=== PATIENT | male | born 1955 | race African-American/Black ===

== ENCOUNTER 2018-11-15 10:40 | Inpatient (IN) | payer OTHER ==
[2018-11-15] VITALS (80 sets, daily range): BP systolic 76–124; BP diastolic 41–80
[~2018-11-15] VITALS: Ht 175.3 cm; Wt 83.1 kg
--- NOTE | ~2018-11-15 | EEG ---
[facility] [place] [address] [place] [address] ELECTROENCEPHALOGRAM Name: CONNIE AN Room #: 241-P ADM IN M.R.#: [id number] Admission: 11/15/18 Attend Phys: Bryan Banerjee MD Discharge: Date of : 59 Report #: [id number] THIS REPORT FOR: //name// CC: Jerman Banerjee DATE OF SERVICE: 11/18/2018 This patient is being evaluated for electrocerebral silence. EEG was done by placing the electrode by standard 10-20 system of electrode placement. Both referential and sequential montages were used for recording. Initial portion of this EEG demonstrated a lot of muscle artifact and was uninterpretable. It disappeared after paralyzing agent confirming that it was muscle artifact. On the regular sensitivity of 7 microvolts, the patient's EEG does not show any definite cortical activity. On 2 microvolt artifact is present and it becomes difficult to rule out very low voltage activity from the artifact. IMPRESSION: This is a severely abnormal electroencephalogram, which does not show any cortical activity at the regular sensitivity of 7 microvolts. At 2 microvolt, it is difficult to tell because electronic artifact is present. Very low voltage activity cannot be fully excluded in this patient on the basis of this electroencephalogram alone. Either clinical correlation or evaluation by brain flow studies or repeat EEG or correlation with other electrophysiological modalities like SSER can be done as clinically indicated. Thank you very much for this referral and if you have any question, please feel free to contact me. By: 1640 [id number] Juan Marinelli MD /lora
[2018-11-15 11:16] LABS: HEMATOCRIT 54.7 % (42.0-52.0); HEMOGLOBIN 16.7 gm/dL (14.0-18.0); MCH 30.9 pg (26.0-34.0); MCHC 30.5 g/dL (28.0-37.0); MCV 101.1 fL (80.0-100.0); RBC 5.41 mil/uL (4.50-6.00); RDW 18.6 % (10.5-14.5); WBC 23.3 thou/uL (4.0-11.0)
[2018-11-15 11:19] LABS: CREATININE 2.1 mg/dL (0.7-1.3)
[2018-11-15 11:30] LABS: BE(vivo) -24.6 mmol/L (-2 to +3); HCO3 12.9 mmol/L (22.0-26.0); PO2 228.7 mmHg (80.0-100.0); sO2 98.4 % (92.0-98.0)
[2018-11-15 11:31] LABS: PCO2 92.9 mmHg (35.0-45.0); pH 6.761 (7.360-7.450)
[2018-11-15 11:38] LABS: POTASSIUM 3.2 mmol/L (3.5-5.1)
[2018-11-15 12:00] LABS: ABSOLUTE NEUTROPHILS 14.4 thou/uL (1.4-8.2); ANISOCYTOSIS 2+; METAMYELOCYTES 5 %; MYELOCYTES 1 %
[2018-11-15 12:02] LABS: PLATELET COUNT 76 thou/uL (150-400)
[2018-11-15 12:27] LABS: ALBUMIN 2.1 g/dL (3.4-5.0); DIRECT BILIRUBIN 0.2 mg/dL (<0.1-0.3); TOTAL BILIRUBIN 0.8 mg/dL (<0.1-1.0); TOTAL PROTEIN 7.2 g/dL (6.4-8.2)
[2018-11-15 12:55] LABS: BE(vivo) -15.7 mmol/L (-2 to +3); HCO3 17.9 mmol/L (22.0-26.0); PO2 82.7 mmHg (80.0-100.0)
[2018-11-15 12:56] LABS: PCO2 79.9 mmHg (35.0-45.0); pH 6.968 (7.360-7.450)
[2018-11-15 14:54] LABS: HCO3 18.5 mmol/L (22.0-26.0); PCO2 60.4 mmHg (35.0-45.0); PO2 71.7 mmHg (80.0-100.0); sO2 87.8 % (92.0-98.0)
[2018-11-15 14:57] LABS: pH 7.103 (7.360-7.450)
--- NOTE | 2018-11-15 15:21 | NUR ---
VASCULAR ACCESS CONSULTED FOR A CL FOR THIS PT WHO HIS S/P CODE WITH PE'S. DR ZEE HAS LINE MEDICALLY NECESSARY, JENISE RN IN FOR TIME OUT. LT IJ ASSESSED WITH US WIDELY PATENT. PER HOSP P&P HIS LT IJ WAS ACCESSED X1 ATTEMPT WITH US GUIDE, A 5FRTLPICC TRIMMED AT 30CM WITH A PEAKED PWAVE CAPTURED AT 23CM INTERNALLY WITH ECG. 7CM EXT AND SECURED WITH A SL. LABS OBTAINED AND A CXR ORDERED FOR CONFIRMING A - PNEUMO.
[2018-11-15 15:55] LABS: CREATININE 1.9 mg/dL (0.7-1.3)
[2018-11-15 15:56] LABS: AMP/METHAMP Negative (Negative); BARBITURATES Negative (Negative); BENZODIAZEPINES Negative (Negative); COCAINE Negative (Negative); METHADONE Negative (Negative); OPIATES Negative (Negative); PCP Negative (Negative)
[2018-11-15 15:59] LABS: CALCIUM 6.7 mg/dL (8.5-10.1)
[2018-11-15 16:01] LABS: ALBUMIN 1.6 g/dL (3.4-5.0); TOTAL BILIRUBIN 1.4 mg/dL (<0.1-1.0); TOTAL PROTEIN 5.4 g/dL (6.4-8.2)
[2018-11-15 16:20] LABS: URINE CLARITY CLEAR; URINE COLOR YELLOW; URINE GLUCOSE-RANDOM* TRACE (Negative); URINE KETONES NEGATIVE (Negative); URINE PROTEIN (DIPSTICK) 2+ (Negative)
[2018-11-15 16:21] LABS: URINE BILIRUBIN NEGATIVE (Negative); URINE BLOOD 3+ (Negative); URINE LEUKOCYTES-REFLEX NEGATIVE (Negative); URINE NITRITE-REFLEX NEGATIVE (Negative); URINE UROBILINOGEN 0.2 E.U./dl (0.2-1.0)
[2018-11-15 17:00] LABS: SQUAMOUS 0-3 Few /LPF (0-3)
[2018-11-15 17:01] LABS: CASTS None Seen /LPF (None Seen); CRYSTALS None Seen /LPF (None Seen)
[2018-11-15 17:02] LABS: URINE RBC >20 Many /HPF (0-2); URINE WBC-REFLEX 6-15 Few /HPF (0-5)
[2018-11-15 17:04] LABS: YEAST-REFLEX Present (None Seen)
[2018-11-15 17:09] LABS: BE(vivo) -12.4 mmol/L (-2 to +3); HCO3 15.4 mmol/L (22.0-26.0); PCO2 42.1 mmHg (35.0-45.0); PO2 94.9 mmHg (80.0-100.0); sO2 95.5 % (92.0-98.0)
[2018-11-15 17:10] LABS: pH 7.182 (7.360-7.450)
--- NOTE | 2018-11-15 19:52 | NUR ---
ASSUMED CARE OF PT AT 1400 THIS SHIFT. PT HAS BEEN INTUBATED AND UNRESPONSIVE SINCE ARRIVAL TO UNIT. PT WAS STARTED ON HYPOTHERMIA COOLING PROTOCOL IN ER, HOWEVER NO ORDERS WERE IN PLACE IN THE COMPUTER. PT WAS ALSO STARTED ON SEPSIS PROTOCOL. ID, CARDIOLOGY, PULMONARY, AND IR WERE CONSULTED. HOSPITAL HAD POWER OUTAGES THIS SHIFT, AND ICU PAGES WERE NOT REACHING DR ZEE, ORDERES WERE RECIEVED FROM DR HERCULES REGARDING HYPOTHERMIA PROTOCOL AND MEDICATION. PT WAS NOT ABLE TO TOLERATE HYPOTHERMIA MORE THAN 1 HOUR, PROTOCOL HAD TO BE STOPPED DUE TO HEMODYNAMIC INSTABILITY. PT HAS BEEN PLACED ON 3 PRESSORS THIS SHIFT AND PROPOFOL GTT FOR VENT MANAGEMENT. PT ALSO HAD A CT SCAN AND HEPARIN GTT WAS STARTED FOR PE TX. PT'S HAS BEEN BY TO SEE PT, EDUCATION WAS PROVIDED. PLAN OF CARE IS TO CONTINUE TO MONITOR PT CLOSELY AT THIS TIME.
[2018-11-15 20:00] LABS: BE(vivo) -14.9 mmol/L (-2 to +3); HCO3 12.3 mmol/L (22.0-26.0); PCO2 33.6 mmHg (35.0-45.0); PO2 183.6 mmHg (80.0-100.0); sO2 98.9 % (92.0-98.0)
[2018-11-15 21:49] LABS: CALCIUM 6.4 mg/dL (8.5-10.1); CREATININE 2.2 mg/dL (0.7-1.3)
[2018-11-15 21:51] LABS: POTASSIUM 2.6 mmol/L (3.5-5.1)
[2018-11-15 22:02] LABS: BE(vivo) -13.1 mmol/L (-2 to +3); HCO3 12.9 mmol/L (22.0-26.0); PCO2 31.2 mmHg (35.0-45.0); PO2 138.4 mmHg (80.0-100.0); sO2 98.3 % (92.0-98.0)
[2018-11-15 22:03] LABS: pH 7.235 (7.360-7.450)
[2018-11-16] VITALS (72 sets, daily range): BP systolic 92–133; BP diastolic 59–81
--- NOTE | 2018-11-16 01:59 | EKG ---
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
[2018-11-16 05:48] LABS: BE(vivo) -9.4 mmol/L (-2 to +3); HCO3 14.9 mmol/L (22.0-26.0); PCO2 29.1 mmHg (35.0-45.0); PO2 166.5 mmHg (80.0-100.0)
[2018-11-16 05:49] LABS: pH 7.328 (7.360-7.450)
[2018-11-16 06:25] LABS: HEMATOCRIT 47.9 % (42.0-52.0); MCH 29.8 pg (26.0-34.0); MCHC 31.4 g/dL (28.0-37.0); PLATELET COUNT 78 thou/uL (150-400); RBC 5.05 mil/uL (4.50-6.00); RDW 17.6 % (10.5-14.5)
[2018-11-16 06:27] LABS: MCV 94.8 fL (80.0-100.0); WBC 39.5 thou/uL (4.0-11.0)
[2018-11-16 06:38] LABS: CREATININE 2.6 mg/dL (0.7-1.3); POTASSIUM 3.4 mmol/L (3.5-5.1)
[2018-11-16 06:53] LABS: CALCIUM 7.1 mg/dL (8.5-10.1)
--- NOTE | 2018-11-16 07:49 | NUR ---
END OF SHIFT SUMMARY: Slow progress toward goals. Pt remains non-responsive except to open eyes, and has jerking/twitching of facial muscles and upper extremities to noxious stimuli. Positive corneal and gag reflexes. MTN notified per protocol. Pt initially on propofol 30 mcg/kg/min and Fentanyl 30 mcg/hour for sedation. Able to titrate fentanyl off and Propofol titrated down to 24 mcg/kg/min. Pt has remained sinus rhythm without ectopy this shift. Blood pressure intially required Levophed at 30 mcg/min, Vasopressin 0.04 units/min, and Epinephrine at 10 mcg/min to maintain MAP >60. Epinephrine changed to Neosynephrine per order Dr. Rudolph and titrated off by 0400. Levophed now down to 28 mcg/min and Vasopressin remains at max dose. Heparin gtt titrated per protocol. Critical labs called to physicians as noted in [facility]. Able to titrate FiO2 down to 50% from 60%, sat remains 100%. ABGs have shown gradual improvement over this shift. Urine output remains very marginal (250 cc for this shift) despite Lasix given at 2300.
--- NOTE | 2018-11-16 08:22 | HC ---
[facility] [place] [address] [place] [address] CONSULTATION Name: CONNIE AN Room #: [facility]- ADM IN M.R.#: [id number] Admission: 11/15/18 Attend Phys: Bryan Banerjee MD Discharge: Date of : 59 Report #: [id number] THIS REPORT FOR: //name// CC: Jerman Banerjee DATE OF SERVICE: 11/15/2018 INDICATION: Out of hospital arrest. HISTORY OF PRESENT ILLNESS: This is a 63-year-old gentleman who presents with an out of hospital arrest, witnessed by his . The patient is presently intubated, the history is obtained from his records. He had been feeling sick for the past few days, with decreased p.o. intake. He developed shortness of breath and became unresponsive. His called 911. He received CPR and several rounds of epinephrine for PEA/asystole. In the ER, he was noted to have a pulse and was intubated. He was hypotensive requiring pressor support. A CT scan revealed a large embolism in the pulmonary artery with extension into the right pulmonary artery. There is also evidence for pneumonia on the right side. PAST MEDICAL HISTORY: Apparently with Crohn's. ALLERGIES: Please see the MAR. MEDICATIONS: No known home medications. SOCIAL HISTORY: No apparent history for tobacco use. FAMILY HISTORY: Unobtainable. REVIEW OF SYSTEMS: Unobtainable. PHYSICAL EXAMINATION: VITAL SIGNS: Blood pressure is 104/70, heart rate is 85 beats per minute. GENERAL APPEARANCE: This is a well-developed, well-nourished male, intubated, unresponsive. HEENT: Normocephalic, atraumatic. ET tube in place. NECK: No JVD. LUNGS: Diminished breath sounds on the right side. CARDIAC: S1, S2 positive, regular rate and rhythm. ABDOMEN: Soft, nontender. EXTREMITIES: No cyanosis, no edema. ECG reveals sinus rhythm, right bundle branch block, Q-waves in leads 3 and aVF. LABORATORY VALUES: Initial creatinine is 2.1. Troponin 0.08. White count is [facility] [address] [place] [address] CONSULTATION Name: CONNIE AN Room #: 241-P ADM IN M.R.#: [id number] Admission: 11/15/18 Attend Phys: Bryan Banerjee MD Discharge: Date of : 59 Report #: [id number] 23.3, hemoglobin 16.7. Initial lactate was 12.82. ASSESSMENT AND PLAN: 1. Out of hospital cardiac arrest, attributed to hypoxia from pulmonary embolism. No evidence for arrhythmia by EMS. Presently on heparin. Continue full ICU supportive care at this time. 2. Hypotension, rule out septic shock. The patient had been feeling ill for the past several days. Antibiotics and panculture, as per ID. A CT scan suggestive for right lung pneumonia. 3. Minimal troponin elevation, 0.08, probably due to oxygen mismatch from pulmonary emboli. We will proceed with an echocardiogram. 4. Encephalopathy, presently unresponsive with no purposeful movements. We will observe for any change in his status. May have had anoxic encephalopathy due to his arrest. <ELECTRONICALLY SIGNED> By: Rj Hodge MD 11/16/18 0822 [id number] Rj Hodge MD /nt
--- NOTE | 2018-11-16 10:35 | HC ---
[facility] [place] [address] [place] [address] CONSULTATION Name: CONNIE AN Room #: 241-P ADM IN M.R.#: [id number] Admission: 11/15/18 Attend Phys: Bryan Banerjee MD Discharge: Date of : 59 Report #: [id number] THIS REPORT FOR: //name// CC: Jerman Banerjee DATE OF SERVICE: 11/15/2018 Infectious Diseases Consultation REASON FOR CONSULTATION: Evaluation of septic shock. HISTORY OF PRESENT ILLNESS: The patient is a 63-year-old black male who presented to the emergency room this morning after being found down at home by his . Unclear exactly how long he was down. First report was that he collapsed on the floor with in attendance, but I am not sure if that is correct. She found no pulse and began CPR, called the paramedics who then initiated ACLS protocol, intubated in the field, found to be in PEA. Once presenting to the emergency room, he was hypotensive and given IV fluids and had initial response to this. Further imaging by CT scan showed left pulmonary embolus, as well as extensive right pneumonia. The patient has underlying history of Crohn's disease and has had intermittent doses of prednisone. Nothing in the recent past. Prior to this, the patient had been with an upper respiratory tract infection symptoms. He had some sinus congestion and headaches. He has had no travel. No other known exposures. No previous history of hypercoagulable state. Following stabilization in the emergency room, he was transported to ICU where he is on IV fluids, bicarbonate drip along with three vasopressors to maintain adequate blood pressure. He has remained hypothermic. There was a trial of the hypothermic protocol, but this was taken off due to his instability. He has remained encephalopathic. There has been evidence of muscle twitching, mostly in facial and upper extremities. He is now on FIO2 of 50%. He has had minimal amount of tracheal secretions. OG tube to suction. No bloody fluid has been identified. He has had no diarrhea. He has indwelling Lewis catheter now with poor urine output. REVIEW OF SYSTEMS: A 10-point review of systems is negative other than what is described above. ALLERGIES: None known. MEDICATIONS: As noted on his MAR, which were reviewed. He was given azithromycin, Levaquin, Zosyn thus far. He is now anticoagulated. PAST MEDICAL HISTORY: Crohn's disease. [facility] [address] [place] [address] CONSULTATION Name: CONNIE AN Room #: 241-P [facility] IN M.R.#: [id number] Admission: 11/15/18 Attend Phys: Bryan Banerjee MD Discharge: Date of : 59 Report #: [id number] FAMILY HISTORY: Noncontributory. SOCIAL HISTORY: Lives with his . We do not know his alcohol or tobacco use history. PHYSICAL EXAMINATION: GENERAL: He was on the ventilator. VITAL SIGNS: Temperature 95.7, pulse is 72, blood pressure 88/67. He is on 50% FiO2, orally intubated. The patient was cold in distal extremities. No rashes. HEENT: Upward gaze with conjunctivitis evident. Mouth without lesion. NECK: Supple. No palpable adenopathy. LUNGS: Coarse breath sounds in the right. CARDIOVASCULAR: Heart was regular without murmur, gallop or rub. ABDOMEN: Soft, nontender, no hepatosplenomegaly or mass appreciated. GENITOURINARY: External genitalia unremarkable with no masses or rash and an indwelling Lewis catheter. RECTAL: Not performed. NEUROLOGIC: He did withdraw to pain. He did have frequent myoclonic jerks involving his eyes and mouth. LABORATORY DATA: Sodium 140, potassium 2.6, bicarbonate 19, creatinine 2.2, AST 131, bilirubin 1.41, alkaline phosphatase 134, ALT 34, albumin of 1.6. Troponin 0.08. INR 2, fibrinogen 50. Drug screen negative. Hemoglobin 16.7, WBC 21945, platelet count 30255, 56% neutrophils, 6% bands, 5% metamyelocyte, 1 myelocyte. Procalcitonin 1.1. Urinalysis: Few WBCs, many RBCs, moderate bacteria, yeast present. ABG at 19:55 on 50% FiO2, he had pO2 of 138, pCO2 of 31, pH 7.235, lactate 5.6. Blood, urine and sputum cultures are pending. Urine antigen is pending. IMAGING DATA: Chest x-ray as noted above with a large 3.2 cm embolism in the left main pulmonary artery extending into the left lower lobe pulmonary arteries. Extensive pneumonia to the right lung. Coronary disease evident. CT of the head: Ethmoid and sphenoid sinusitis. IMPRESSION: 1. A 53-year-old with out of hospital cardiac arrest due to pulmonary embolus. Likely aspiration pneumonia. Still possible he could have had pneumonia predating this, but I suspect this is more likely secondary issue from his code and cardiopulmonary resuscitation. 2. Anoxic brain injury. 3. Acute kidney injury. 4. Underlying Crohn's disease. RECOMMENDATIONS: We will continue full ICU support. I have discussed with nursing staff regarding treatment approach. We will continue IV antibiotic [facility] [address] [place] [address] CONSULTATION Name: CONNIE AN Room #: 241-P ADM IN Markos.#: [id number] Admission: 11/15/18 Attend Phys: Bryan Banerjee MD Discharge: Date of : 59 Report #: [id number] therapy awaiting culture results. Continue vasopressors and fluids per sepsis protocol. Follow chest x-ray. Adjust his antibiotics for his acute renal injury. [place] in this situation is poor given his multisystem failure and apparent anoxic brain injury. At his age; however, we will need to continue current level of support to see if there will be signs of improvement within the next several days. <ELECTRONICALLY SIGNED> By: Carlos Casanova MD 11/16/18 1035 [id number] Carlos Casanova MD /nt
[2018-11-16 11:12] LABS: ABSOLUTE NEUTROPHILS 37.9 thou/uL (1.4-8.2); ANISOCYTOSIS 1+
[2018-11-16 11:30] LABS: HCO3 15.4 mmol/L (22.0-26.0); PO2 204.3 mmHg (80.0-100.0); sO2 99.3 % (92.0-98.0)
[2018-11-16 11:31] LABS: pH 7.329 (7.360-7.450)
[2018-11-16 12:35] LABS: CALCIUM 6.1 mg/dL (8.5-10.1); CREATININE 2.7 mg/dL (0.7-1.3); POTASSIUM 3.8 mmol/L (3.5-5.1)
--- NOTE | 2018-11-16 15:24 | HC ---
[facility] [place] [address] [place] [address] CONSULTATION Name: CONNIE AN Room #: 241-P ADM IN M.R.#: [id number] Admission: 11/15/18 Attend Phys: Bryan Banerjee MD Discharge: Date of : 59 Report #: [id number] THIS REPORT FOR: //name// CC: Jerman Banerjee DATE OF SERVICE: 11/15/2018 REFERRING PHYSICIAN: Dr. Banerjee. REASON FOR REFERRAL: Respiratory arrest. HISTORY OF PRESENT ILLNESS: The patient is a 63-year-old male who presents to the Emergency Room following a cardiac arrest. A pulmonary consultation was requested. The patient was apparently sitting at home and the patient suddenly became dyspneic and then went unresponsive. When EMS arrived, the patient was found to be pulseless. Prior to this, the has given CPR to the patient for about 2 minutes. The patient was intubated in the field. Subsequently, the patient was found to be in asystole, PEA. The patient was then transferred to the Emergency Room. Spontaneous return of pulse was noted when the patient arrived in the Emergency Room. Laryngeal intubation tube was then substituted for an endotracheal tube. The patient was hypotensive. He was given IV fluids, broad spectrum antibiotics. Hypothermia protocol has also been initiated. At this time, the patient remains unresponsive. CT chest, chest x-ray shows right upper lobe, right lower lobe infiltrates. ET tube is approximately 3 cm above the markos. PAST MEDICAL HISTORY: Notable for Crohn's disease, otherwise incomplete. ALLERGIES: Unknown. HOME MEDICATIONS: Unknown. FAMILY HISTORY: Unknown. SOCIAL HISTORY: The patient is a lifetime nonsmoker. No alcohol use. REVIEW OF SYSTEMS: As mentioned above, otherwise unable to obtain as the patient is intubated. PHYSICAL EXAMINATION: GENERAL: He is unresponsive, he does have twitching motions involving both of [facility] [address] [place] [address] CONSULTATION Name: CONNIE AN Room #: 241-P [facility] IN Jose.#: [id number] Admission: 11/15/18 Attend Phys: Bryan Banerjee MD Discharge: Date of : 59 Report #: [id number] his shoulders. VITAL SIGNS: Pulse is 80, respiratory rate is 20, blood pressure is 110/64 mmHg. Following fluid resuscitation, saturation 100%. HEENT: Normocephalic, atraumatic. NECK: Supple, without lymphadenopathy or thyromegaly. He is orally intubated. CHEST: Breath sounds are coarse in the right lung field. No wheezes. CARDIOVASCULAR: No obvious murmurs or gallop. Pulses are 2+/4+ bilaterally. ABDOMEN: Soft, nontender, no organomegaly or masses felt. GENITOURINARY: Deferred. RECTAL: Deferred. EXTREMITIES: There is no edema, cyanosis or clubbing. NEUROLOGIC: The patient is unresponsive. Some decorticate posturing. He is unresponsive to deep sternal rub. LABORATORY DATA: Chest x-ray and chest CT as mentioned above. CT head was unremarkable. CT chest angiogram also revealed pulmonary embolus involving the left main pulmonary artery. Pneumonia in the right side. Electrolytes: Sodium 142, potassium 3.2, chloride 100, CO2 is 18, BUN is 18, creatinine is 2.1. WBC 23,000, hemoglobin 16.7, platelets 76,000. INR 2.0, PTT 107. Arterial blood gas on admission revealed pH 7.67, pCO2 is 92, pO2 is 228 on FiO2 100%. Albumin 2.1. IMPRESSION: 1. Out of hospital cardiac arrest in this 63-year-old male. His chest x-ray and chest CT angiogram shows right upper lobe and right lower lobe infiltrates. There is a moderate sized left main pulmonary artery embolus. It is likely that patient likely had pulmonary embolus resulting in loss of consciousness resulting in cardiac arrest and likely have aspirated. 2. Acute pulmonary embolus. Unclear if it is provoked or unprovoked. This will need to be addressed. 2. Right upper lobe, right lower lobe infiltrate, likely aspiration pneumonia. 3. Cardiac arrest as mentioned above, agree with hypothermia protocol. 4. Presumed acute kidney injury in the setting of septic shock, will need to monitor urine output closely along with recent IV contrast administration. 5. Encephalopathy, probable acute hypoxic brain injury, along with toxic and metabolic. 6. History of Crohn's disease. 7. Disseminated intravascular coagulation due to severe sepsis. 8. Severe protein-calorie malnutrition. RECOMMENDATION: 1. We will continue mechanical ventilation, optimize PEEP as allowed along with weaning FiO2 90-92%. Broad-spectrum antibiotics recommended in particular to cover for presumed aspiration pneumonia. 2. Agree with sepsis protocol. Infectious Disease has been consulted. [address] [address] CONSULTATION Name: CONNIE AN Room #: 241-P ADM IN M.R.#: [id number] Admission: 11/15/18 Attend Phys: Bryan Banerjee MD Discharge: Date of : 59 Report #: [id number] 3. We will need to monitor urine output closely given septic shock, recent IV contrast administration along with a creatinine on admission of 2.1. 4. He will need anticoagulation as tolerated. 5. Agree with hypothermia protocol. 6. Baseline ultrasound, echocardiogram will be ordered. 7. Overall, the patient is very critically ill. Overall, prognosis is very guarded at this time. Thank you for this consultation. Critical care one hour. <ELECTRONICALLY SIGNED> By: Clarence Rudolph MD 11/16/18 1524 1335 [id number] Clarence Rudolph MD /nt
--- NOTE | 2018-11-16 16:45 | NUR ---
ASSUMED CARE OF PT AT 0700 THIS SHIFT. PT HAS BEEN UNRESPONSIVE, NOT FOLLOWING ANY COMMANDS. PT DOES NOT APPEAR TO HAVE GAG REFLEX, HOWEVER, HARD TO TELL DUE TO PT'S TEETH BEING CLAMPED DOWN VERY TIGHT AROUND ET TUBE AND BITE BLOCK. PT DOES HAVE JERKING MUSCLE SPASMS WHEN SEDATION IS LIGHTENED WELL BEING TACHYPNIC AND OVERBREATHING THE VENT. PT HAS BEEN TITRATED DOWN TO ONE PRESSOR, CURRENTLY STILL TITRATING DOWN - SEE MED TITRATION. PT IS MAKING ADEQUATE URINE, HEPARIN GTT IS THERAPEUTIC. ASSESSMENTS ARE DOCUMENTED. PT HAS HAD VISITORS THIS SHIFT, EDUCATION WAS PROVIDED. PLAN OF CARE IS TO CONTINUE TO MONITOR PT CLOSELY AT THIS TIME.
[2018-11-16 17:09] LABS: BE(vivo) -7.3 mmol/L (-2 to +3); HCO3 16.4 mmol/L (22.0-26.0); PCO2 28.8 mmHg (35.0-45.0); pH 7.372 (7.360-7.450); sO2 97.7 % (92.0-98.0)
[2018-11-16 17:31] LABS: CALCIUM 6.1 mg/dL (8.5-10.1); CREATININE 2.9 mg/dL (0.7-1.3); POTASSIUM 3.4 mmol/L (3.5-5.1)
[2018-11-17] VITALS (94 sets, daily range): BP systolic 98–148; BP diastolic 62–103
[2018-11-17 05:00] LABS: BE(vivo) -6.5 mmol/L (-2 to +3); HCO3 17.2 mmol/L (22.0-26.0); PCO2 29.3 mmHg (35.0-45.0); pH 7.387 (7.360-7.450); sO2 87.1 % (92.0-98.0)
[2018-11-17 05:01] LABS: PO2 52.1 mmHg (80.0-100.0)
[2018-11-17 05:34] LABS: HEMATOCRIT 39.8 % (42.0-52.0); MCH 29.8 pg (26.0-34.0); MCHC 32.3 g/dL (28.0-37.0); MCV 92.3 fL (80.0-100.0); PLATELET COUNT 64 thou/uL (150-400); RBC 4.32 mil/uL (4.50-6.00); RDW 17.2 % (10.5-14.5)
[2018-11-17 05:45] LABS: HEMOGLOBIN 12.9 gm/dL (14.0-18.0); WBC 24.4 thou/uL (4.0-11.0)
[2018-11-17 05:54] LABS: ALBUMIN 1.7 g/dL (3.4-5.0); CREATININE 3.3 mg/dL (0.7-1.3); MAGNESIUM 1.8 mg/dL (1.8-2.4); POTASSIUM 3.3 mmol/L (3.5-5.1); TOTAL BILIRUBIN 0.7 mg/dL (<0.1-1.0); TOTAL PROTEIN 5.7 g/dL (6.4-8.2)
--- NOTE | 2018-11-17 06:36 | NUR ---
END OF SHIFT SUMMARY: Pt has remained stable this shift. Monitor remains sinus rhythm, sinus tachycardia, rates 70-106. MAP remains > 70 with Quad Strength Levophed at 6 mcg/min. Pt resting calmly on vent, no jerking or muscle twitching, with Propofol at 35 mcg/kg/min. Suctioning small amounts of thick greyish yellow sputum. Minimal dark green output from OG. Pt had two loose, dark green mucous stools this shift. Urine output has improved, hourly output approximately 125 per hour. Pt remains on heparin gtt for pulmonary emboli.
[2018-11-17 06:47] LABS: ABSOLUTE NEUTROPHILS 22.4 thou/uL (1.4-8.2)
[2018-11-17 06:48] LABS: BURR CELLS 1+; PLATELET ESTIMATE DECREASED
[2018-11-17] MEDS ORDERED: SULFASALAZINE500 M5 PO (08:28)
--- NOTE | 2018-11-17 09:52 | NUR ---
Admit to ICU with sepsis, post code. Currently unresponsive, intubated and on propofol. Will follow plan of care, and any decisions to start nutrition support.
--- NOTE | 2018-11-17 13:36 | EKG ---
[address] [address] ELECTROCARDIOGRAM REPORT Name: CONNIE AN Room #: 241-P ADM IN M.R.#: [id number] Admission: 11/15/18 Attend Phys: Bryan Banerjee MD Discharge: Date of : 59 Report #: [id number] THIS REPORT FOR: //name// [facility] Test Date: 2018-11-17 Test Time: 07:07:10 Pat Name: CONNIE AN Department: Room: 241 P Gender: M Office System Analyst: DIPTI : 1955 Requested By: Rj Hodge Order Number: [id number] MD: Addison Camacho Measurements Intervals [place] Rate: 71 P: 14 [place]: 155 QRS: -24 QRSD: 108 T: -38 QT: 488 QTc: 531 Interpretive Statements Sinus rhythm Borderline left axis deviation RSR' in V1 or V2, right VCD or RVH Borderline T abnormalities, inferior leads Compared to ECG 11/15/2018 10:42:59 Electronically Signed On 11-17-2018 13:36:36 KOSHER DIETARY SERVICE MANAGER by Addison Camacho [email or web address] <ELECTRONICALLY SIGNED> By: Addison Camacho MD 11/17/18 1336 [id number] 0707 Addison Camacho MD /EPI
[2018-11-17 14:00] LABS: BE(vivo) -7.2 mmol/L (-2 to +3); HCO3 15.7 mmol/L (22.0-26.0); PCO2 25.6 mmHg (35.0-45.0); PO2 152.1 mmHg (80.0-100.0); pH 7.405 (7.360-7.450)
--- NOTE | 2018-11-17 15:07 | NUR ---
CM ASSESSMENT: CASE OPENED FOR DC PLANNING. CLINICAL INFO REVIEWED. ARREST AT HOME WITH SPOUSE CALLING EMS AND STARTING CPR. INTUBATED. MET WITH SPOUSE. PT AND SPOUSE LIVE INN HOUSE. PT IS MEDICALLY DISABLED, BUT INDEPENDENT WITH ADLS, NO DME OR PREVIOUS HH. INFORMED SPOUSE [employer] INSURANCE CARD PROVIDED SHOWS POLICY TERMED 09/14/18. SPOUSE INDICATES SHE BELIEVES CURRENT CARD AT HOME AND WENT TO LOOK. INSTRUCTED NEWS LIBRARY DIRECTOR TO COPY NEW CARD IF SPOUSE ABLE TO LOCATE.
--- NOTE | 2018-11-17 16:37 | 2DMMODE ---
[facility] [address] [place] [address] 2 D/M-MODE ECHOCARDIOGRAM Name: CONNIE AN Room #: 241-P ADM IN M.R.#: [id number] Admission: 11/15/18 Attend Phys: Bryan Banerjee MD Discharge: Date of : 59 Date of Service: 11/17/18 1636 Report #: [id number] THIS REPORT FOR: //name// APPROVED REPORT Study performed: 11/17/2018 13:26:21 EXAM: Comprehensive 2D, Doppler, and color-flow Echocardiogram Patient Location: ICU Room #: 241 Status: routine BSA: 2.12 HR: 88 bpm BP: 122/90 mmHg Rhythm: NSR Other Information Study Quality: Good Indications Pulmonary Embolism Cardiac Arrest 2D Dimensions RVDd: 40.77 mm IVSd: 10.67 (7-11mm) LVOT Diam: 26.26 (18-24mm) LVDd: 52.93 mm PWd: 10.38 (7-11mm) Ascending Ao: 34.53 (22-36mm) LVDs: 42.19 (25-40mm) Aortic Root: 40.59 mm IVC: 25.00 mm Volumes Left Atrial Volume (Systole) Single Plane 4CH: 61.42 mL Single Plane 2CH: 67.53 mL LA ESV Index: 36.00 mL/m2 Aortic Valve AoV Peak Isidro.: 0.89 m/s AO Peak Gr.: 3.15 mmHg LVOT Max P.20 mmHg LVOT Max V: 0.74 m/s OBIE Vmax: 4.53 cm2 Mitral Valve E/A Ratio: 0.5 MV Decel. Time: 203.39 ms [facility] [address] [place] [address] 2 D/M-MODE ECHOCARDIOGRAM Name: CONNIE AN Room #: 241-P [facility] IN [facility].#: [id number] Admission: 11/15/18 Attend Phys: Bryan Banerjee MD Discharge: Date of : 59 Date of Service: 11/17/18 1636 Report #: [id number] E Max Isidro.: 0.50 m/s MV A Isidro.: 0.93 m/s MV PHT: 58.98 ms IVRT: 147.64 ms Pulmonary Valve PV Peak Isidro.: 0.56 m/s PV Peak Gr.: 1.26 mmHg Pulmonary Vein P Vein S: 0.59 m/s P Vein A: 0.29 m/s P Vein D: 0.28 m/s P Vein A Dur.: 133.8 msec P Vein S/D Ratio: 2.11 Left Ventricle The left ventricle is normal size. There is global hypokinesis of the left ventricle. There is normal left ventricular wall thickness. Left ventricular systolic function is moderately decreased. LVEF 40%. Grade I - abnormal relaxation pattern. Right Ventricle The right ventricle is normal size. The right ventricular systolic function is normal. Atria Left atrium is dilated. Right atrium is at the upper limits of normal. Aortic Valve Aortic valve is mildly calcified, probably bicuspid. Trace aortic regurgitation. There is no aortic valvular stenosis. Mitral Valve The mitral valve is normal in structure. Trace to mild mitral regurgitation. No evidence of mitral valve stenosis. Tricuspid Valve The tricuspid valve is normal in structure. There is no tricuspid valve regurgitation noted. Pulmonic Valve The pulmonary valve is normal in structure. Trace pulmonic regurgitation. Great Vessels The aortic root is normal in size. IVC is dilated. [facility] [address] [place] [address] 2 D/M-MODE ECHOCARDIOGRAM Name: CONNIE AN Room #: 241-P [facility] IN M.R.#: [id number] Admission: 11/15/18 Attend Phys: Bryan Banerjee MD Discharge: Date of : 59 Date of Service: 11/17/18 1636 Report #: [id number] Pericardium There is no pericardial effusion. <Conclusion> Left ventricular systolic function is moderately decreased. There is global hypokinesis of the left ventricle. LVEF 40%. Mild diastolic dysfunction Aortic valve is mildly calcified, probably bicuspid. Trace aortic regurgitation, no stenosis. The mitral valve is normal in structure. Trace to mild mitral regurgitation. Pulmonary artery pressure could not be reliably ascertained There is no pericardial effusion. <ELECTRONICALLY SIGNED> By: Johnnie Vasquez MD, FACC 11/17/18 [phone] [id number] Johnnie Vasquez MD, FACC /INF
[2018-11-18] VITALS (25 sets, daily range): BP systolic 96–136; BP diastolic 60–99
--- NOTE | 2018-11-18 03:21 | NUR ---
ASSESSMENT CHARTED. SPOKE TO ROSE BLACKMAN ABOUT BOTH BICARB AND NORMAL SALINE DRIPS CONCERNED WITH FLUID OVERLOAD. SHE DROPPED THE RATE OF NORMAL SALINE TO 75. MAINTAINED CVP MONITORING SINCE RENAL HAS NOT SEEN HIM YET. INCREASED TUBE FEED TO 40ML/HR WHICH IS GOAL. TURNED AND BATHED. PLAN OF CARE IS TO BE SEEN BY NEPHROLOGY, ADVANCE CARE POSSIBLE, KEEP FAMILY AWARE OF SITUATION.
[2018-11-18 04:26] LABS: HEMOGLOBIN 12.2 gm/dL (14.0-18.0); MCH 29.3 pg (26.0-34.0); MCHC 31.4 g/dL (28.0-37.0); MCV 93.6 fL (80.0-100.0); RBC 4.17 mil/uL (4.50-6.00); RDW 17.4 % (10.5-14.5); WBC 24.4 thou/uL (4.0-11.0)
[2018-11-18 04:33] LABS: CALCIUM 6.1 mg/dL (8.5-10.1); CREATININE 3.6 mg/dL (0.7-1.3)
[2018-11-18 04:39] LABS: POTASSIUM 3.7 mmol/L (3.5-5.1)
[2018-11-18 05:20] LABS: BE(vivo) -5.8 mmol/L (-2 to +3); HCO3 17.6 mmol/L (22.0-26.0); PCO2 28.8 mmHg (35.0-45.0); PO2 171.6 mmHg (80.0-100.0); pH 7.404 (7.360-7.450); sO2 99.2 % (92.0-98.0)
--- NOTE | 2018-11-18 10:49 | NUR ---
Checked with spouse this am for current insurance card. Spouse provided current member ID and forwarded to precert at [facility]. requested spouse bring card so can copy and forward to precert. Pt remains on vent, off sedation and not responsive. EEG and neuro consult planned.
--- NOTE | 2018-11-18 15:42 | NUR ---
PT IS ALERT AND ORIENTED X3. SOME CONFUSION AT TIMES. SOME PAIN IN RIGHT HIP RATES A 8-9. MEDICATIONS GIVEN FOR PAIN RELIEF. NORMAL SINUS RHYTHM ON THE MECHANICAL SPECIALIST. LUNGS ARE COARSE ON 3 LITERS NASAL CANULA. ON LIQUID DIET. SOME NAUAEA NOTED. OROZCO WITH GOOD OUTPUT. RECEIVED 2UNITS OF BLOOD TODAY FOR HEMOGLOBIN. WILL RECHECK TO SEE AFTER BLOOD WHAT IT IS NOW POST TRANSFUSION. WILL CONTINUE TO ASSESS AND MONITOR PER NURSING
--- NOTE | 2018-11-18 15:50 | NUR ---
PT IS EYES ARE OPEN AND SLUGISH WITH PUPIL REACTION. DOES NOT FOLLOW COMMANDS AT THIS TIME. NEURO CONSULT DONE TODAY . EEG AND TAKEN FOR CT SCAN PER DIAGNOSITC TESTING. NORMAL SINUS RHYTHM ON THE GUIDE SETTER. LUNGS ARE CLEAR TO DIMINISHED. TOLERATING TUBE FEEDING AT GOAL OF 40CC NO RESIDUAL NOTED. SCDS ON BILATERAL. REMAINS ON HEPARIN DRIP FOR PE AT THIS TIME. AT BEDSIDE FOR SUPPORT TODAY. WILL CONTINUE TO ASSESS AND MONITOR PER NURSING
[2018-11-19] VITALS (24 sets, daily range): BP systolic 79–136; BP diastolic 46–80
--- NOTE | 2018-11-19 03:39 | NUR ---
PT HAD AN EPISODE OF WHAT APPEARED TO BE SEIZURE ACTIVITY. PT HAD UPWARD GAZE DEVIATION, HE WAS BITTING HEAVILY ON HIS ETT AND WAS COMPLETELY ASYNCHRONOUS WITH THE VENT. SIMILAR EPISODE WAS WITNESSED EARLIER WHILE PT'S IN THE ROOM. AT THAT TIME ATIVAN WAS GIVEN WITH IMPROVEMENT. HOWEVER, PT DID NOT RESPOND TO ATIVAN ON THIS OCCASION. PT CONTINUE TO BITE DOWN AND WAS NOT GETTING HIS VOLUME ON THE VENT. RTPEG, AT BEDSIDE SUCTIONED MODERATE AMOUNT OF WINTERS/BLOOD TINGED SECRETIONS. PT STARTED ON PROPOFOL AT THIS TIME. WILL CONTINUE TO MONITOR.
[2018-11-19 05:27] LABS: ALBUMIN 1.7 g/dL (3.4-5.0); CALCIUM 6.1 mg/dL (8.5-10.1); CREATININE 3.5 mg/dL (0.7-1.3); PHOSPHORUS 2.8 mg/dL (2.5-4.9)
[2018-11-19 05:52] LABS: HEMATOCRIT 36.8 % (42.0-52.0); MCH 30.2 pg (26.0-34.0); MCHC 32.6 g/dL (28.0-37.0); MCV 92.7 fL (80.0-100.0); RBC 3.97 mil/uL (4.50-6.00); WBC 15.7 thou/uL (4.0-11.0)
[2018-11-19 11:12] LABS: BE(vivo) -5.1 mmol/L (-2 to +3); HCO3 17.5 mmol/L (22.0-26.0); PCO2 26.1 mmHg (35.0-45.0); PO2 140.8 mmHg (80.0-100.0); pH 7.445 (7.360-7.450); sO2 98.9 % (92.0-98.0)
--- NOTE | 2018-11-19 20:37 | NUR ---
ASSESSMENTS AND VITAL SIGNS DOCUMENTED. PHYSICIANS AWARE OF SOFT BLOOD PRESSURE SUCH PULMONARY, CARDIAC, AND NEUROLOGIST PHYSICIANS. PRN LEVOPHED ON STANDBY. PROPOFOL GTT DISCONTINUED SECONDARY TO HYPOTENSION. BLOOD PRESSURES BECAME MORE ELEVATED AFTERWARDS STOPPING THE PROPOFOL. LEVPHED NEVER STARTED. HIS NEUROLOGIC STATUS VARIES. HE WAS HYPOTHERMIC AT ONE POINT, BLANKET WARMER INITIATED OK'D BY PHYSICIANS. HE THEN BECAME NORMOTHERMIC. HIS VITAL SIGNS VARIED. HIS NEURO STATUS VARIED, WHICH WAS INFORMED TO NEUROLOGIST, DURING HIS ASSESSMENT. HE APPEARS TO BE TOLERATING TUBE FEEDING. HEPARIN GTT REMAINS DOCUMENTED. HE BIT HIS TONGUE AND IT IS DIFFICULT TO KEEP HIS TONGUE OUT FROM BETWEEN HIS TEETH. UPDATED THROUGHOUT THE DAY AND WAS ABLE TO TALK TO MULTIPLE PHYSICIANS TODAY. DR. ANGULO AWARE OF PATIENTS BLOOD PRESSURES. PLAN OF CARE IS TO CONTINUE TO MONITOR PATIENT STATUS, MONITOR VITAL SIGNS, TURN Q2 HOURS, MONITOR TUBE FEEDING AND CONTINUE WITH MEDICAL TREATMENTS ORDERED BY PHYSICIANS. POTASSIUM REPLACED PER RENAL ORDER. NURSE TALKED WITH DR. PALOMARES WHO EXPRESSED TO DISCONTINUE PROTOCOL AND NO NEED TO RECHECK HIS POTASSIUM TODAY THERE ARE LAB ORDERS FOR THE MORNING. REPORT GIVEN TO TRANSFER CAR OPERATOR DRIER RN FOR CONTINUATION OF CARE.
[2018-11-20] VITALS (24 sets, daily range): BP systolic 99–155; BP diastolic 47–85
[2018-11-20 06:11] LABS: HEMATOCRIT 36.2 % (42.0-52.0); HEMOGLOBIN 11.4 gm/dL (14.0-18.0); MCH 29.4 pg (26.0-34.0); MCHC 31.6 g/dL (28.0-37.0); RBC 3.89 mil/uL (4.50-6.00); RDW 17.5 % (10.5-14.5); WBC 11.6 thou/uL (4.0-11.0)
[2018-11-20 06:33] LABS: ALBUMIN 1.7 g/dL (3.4-5.0); CALCIUM 6.3 mg/dL (8.5-10.1); CREATININE 3.7 mg/dL (0.7-1.3); MAGNESIUM 1.6 mg/dL (1.8-2.4); TOTAL BILIRUBIN 0.4 mg/dL (<0.1-1.0); TOTAL PROTEIN 5.5 g/dL (6.4-8.2)
--- NOTE | 2018-11-20 07:28 | NUR ---
PT REMAINS ON VENT AT FIO2 40% PT SR/SB ON MONITOR. PT CONTINUES WITH TUBE FEEDS AT GOAL 40CC/HR WITHOUT RESIDUAL. PT CONTINUES ON HEPARIN GTT WITH TITRATION PER PROTOCOL. NOTIFIED DAY RN OF ELECTROLYTE RESULTS AND THEY WILL DEFER TO RENAL FOR REPLACEMENT.
[2018-11-20 12:40] LABS: BE(vivo) -6.5 mmol/L (-2 to +3); HCO3 17.3 mmol/L (22.0-26.0); PO2 122.2 mmHg (80.0-100.0); pH 7.378 (7.360-7.450); sO2 98.4 % (92.0-98.0)
--- NOTE | 2018-11-20 14:48 | NUR ---
PT NOTED TO HAVE INCREASED WORK OF BREATHING AND DIAPHORESIS, VENTILATOR ALARMING FREQUENTLY DESPITE TROUBLE SHOOTING EFFORTS. RT NOTIFIED. OBTAINED ABG. DR HERCULES INFORMED OF ABG RESULTS AT 1245. NEW ORDERS RECEIVED TO RESTART PROPOFOL AND TO GIVE PRN FENTANYL FOR "NEURO STORM"-LIKE ACTIVITY. PT'S SPOUSE INFORMED. MEDS GIVEN WITH GOOD RESULTS.
--- NOTE | 2018-11-20 18:23 | NUR ---
REVIEWED ALL CHARTING FROM 7A-7P TODAY. I AGREE. WITH ALL.
--- NOTE | 2018-11-20 18:28 | NUR ---
ASSUMED CARE OF PT AT 0700. PATIENT REMAINS ON VENTILATOR. PT NOTED TO BE DIAPHORETIC AND WITH INCREASED WORK OF BREATHING ON VENTILATOR, BREATHING WITH DYSYNCHRONY WITH THE VENTILATOR. ABG DONE; RESULTS PHONED TO DR HERCULES. NEW ORDERS OBTAINED TO RESTART PROPOFOL AND DOSE WITH PRN FENTANYL UNTIL COMFORTABLE. DR FATIMA TALKED WITH SPOUSE IN DETAIL ABOUT PT'S BRAINSTEM INJURY. SPOUSE AT BEDSIDE MOST OF DAY. PT TURNED Q2H; NOTED DECORTICATE POSTURING AT TIMES WITH TURNS AND SUCTIONING. CONTINUE TO MONITOR; ON PROPOFOL, IVF, AND HEPARIN GTTS.
[2018-11-21] VITALS (27 sets, daily range): BP systolic 88–133; BP diastolic 49–83
[2018-11-21 04:42] LABS: ALBUMIN 1.6 g/dL (3.4-5.0); CALCIUM 6.5 mg/dL (8.5-10.1); CREATININE 3.5 mg/dL (0.7-1.3); PHOSPHORUS 3.2 mg/dL (2.5-4.9)
[2018-11-21 04:44] LABS: POTASSIUM 2.7 mmol/L (3.5-5.1)
--- NOTE | 2018-11-21 08:09 | NUR ---
Pt continues on the vent , with same settings. Pt remains unresponsive, no purposeful movements noted, Pt yawned a few occassions last night while at bedside, optimistic that pt is showing "improvement". Pt postures to painful stimuli, also with repostioning. Propofol at 12mcg/kg/min, tube feeding infusing at goal , residuals minimal, uop adequate, heparin infusing, aptt recheck this a.m. Pottassium replacement ordered for critical k 2.7. No events noted overnight.
--- NOTE | 2018-11-21 09:00 | HC ---
[facility] [place] [address] [place] [address] CONSULTATION Name: CONNIE AN Room #: [facility]-P ADM IN M.R.#: [id number] Admission: 11/15/18 Attend Phys: Bryan Banerjee MD Discharge: Date of : 59 Report #: [id number] THIS REPORT FOR: //name// CC: Jerman Banerjee REASON FOR CONSULTATION: Acute kidney injury. HISTORY OF PRESENT ILLNESS: The details of the history of present illness were obtained from the chart. I thoroughly reviewed the chart. The patient is currently intubated. He is not able to provide the history. He presented to the hospital on 11/15/2018 post out of the hospital arrest. He was sitting with his , suddenly became short of breath and unresponsive. EMS was called. He was in cardiac arrest. He received 5 rounds of epi en route. He has extensive past medical history. He was found to have massive pulmonary embolus with right upper lobe pneumonitis, likely aspiration. He received a CT angiogram on the . On presentation to the hospital, the patient's creatinine was 2.1. I do not have any previous values. He ran into some issues with hypotension. As expected with his cardiac arrest and the contrast, the patient is going into an acute tubular necrosis. I am being consulted to manage his acute tubular necrosis issues. PAST MEDICAL HISTORY: Obtained from the medical chart. 1. Crohn disease. 2. Cardiomyopathy with an ejection fraction of around 40%. 3. Post-cardiac arrest. 4. Pulmonary disease. REVIEW OF SYSTEMS: Unobtainable given the patient's mental status. SOCIAL HISTORY: Lives with his . FAMILY HISTORY: Unobtainable given the patient's mental status. MEDICATIONS: Listed amongst his home medication is sulfasalazine only. PHYSICAL EXAMINATION: VITAL SIGNS: Pulse is 80, respiratory rate is 27, blood pressure is 120/80. HEAD AND NECK: No jugular venous distention. ET tube present. CHEST: Decreased air entry bilaterally. Crackles present. CARDIOVASCULAR: No rub detected. ABDOMEN: Soft, nontender. LOWER EXTREMITIES: +1 edema. LABORATORY DATA: Reviewed. White blood cell count is 24. Platelets 70. Sodium 143. Anion gap 14. BUN 34. Creatinine 3.6. [facility] [address] [place] [address] CONSULTATION Name: CONNIE AN Room #: [facility]- ADM IN M.R.#: [id number] Admission: 11/15/18 Attend Phys: Bryan Banerjee MD Discharge: Date of : 59 Report #: [id number] Chest x-ray reviewed. Mild pulmonary venous congestion is present. ASSESSMENT, IMPRESSION, PLAN: 1. Acute tubular necrosis. 2. Post out of hospital cardiac arrest due to pulmonary embolism. 3. Pulmonary embolism. 4. Cardiomyopathy. 5. Aspiration. 6. Encephalopathy. 7. Thrombocytopenia. 8. This is a rather grim condition. His acute kidney injury is well explained by his presentation and the contrast. He does seem to make appropriate amount of urine. As of today, we will discontinue his sodium bicarbonate. Continue with the normal saline. Avoid nephrotoxins. 9. Avoid hypotension. His creatinine seems to be plateauing. Cardiology plan for cardiac catheterization noted. I will discuss with them. I would like to postpone the cardiac catheterization until his kidney function stabilizes. Continue antibiotic. Primary team is addressing his ongoing mental status issues. He seems to have sustained a major anoxic brain injury. 10. We will continue to follow. <ELECTRONICALLY SIGNED> By: Aubrey Murdock MD 11/21/18 0900 [id number] Aubrey Murdock MD /nt
--- NOTE | 2018-11-21 19:39 | NUR ---
ASSUMED CARE OF PT AT 0700. PT REMAINS ON VENTILATOR, STOPPED PROPOFOL, AND HEPARIN GTTS. USING PRN FENTANYL AND ATIVAN FOR TEMPORARY SEDATIVE EFFECTS. PT EXPERIENCES "NEURO-STORM"-LIKE ACTIVITY, BECOMES DIAPHORETIC, BITES ETT, HAS DECORTICATE POSTURING, AND BUCKS THE VENT AT TIMES. TRYING TO AVOID RESTARTING PROPOFOL GTT. HR BRADYCARDIC, HOLDING COREG. TOLERATING TUBE FEEDS, AND WATER FLUSHES. IVF DC'D. HAVING LARGE BROWN LIQUID STOOLS REGULARLY. CONTINUE TO MONITOR.
[2018-11-22] VITALS (26 sets, daily range): BP systolic 73–112; BP diastolic 40–79
--- NOTE | 2018-11-22 02:42 | NUR ---
ASSUMED CARE OF PT AT 1900. PT INTUBATED AND ON VENT. NO CONTINUOUS SEDATION, PT HAS FENTANYL AND ATIVAN PRN FOR SEDATION. ATIVAN GIVEN X1 TONIGHT. PT OPENS EYES TO PAIN, BUT DOES NOT TRACK. PT'S LIMBS FLEX WITH PAIN AND SUCTIONING. TEMPERATURE LOW, WARM BLANKETS APPLIED, AND WHEN TEMPERATURE SHOWED LITTLE IMPROVEMENT, KARISHMA HUGGER APPLIED. PT'S TEMPERATURE IS NOW INCREASING. PT'S CONDITION IS NOT PROGRESSING; PT REMAINS NONRESPONSIVE WITH LITTLE, NOT PURPOSEFUL, MOVEMENT. ASSESSMENTS AND VITALS DOCUMENTED. WILL CONTINUE TO MONITOR.
[2018-11-22 06:09] LABS: ALBUMIN 1.7 g/dL (3.4-5.0); CALCIUM 7.1 mg/dL (8.5-10.1); CREATININE 3.2 mg/dL (0.7-1.3); PHOSPHORUS 3.1 mg/dL (2.5-4.9)
[2018-11-22 06:19] LABS: POTASSIUM 2.5 mmol/L (3.5-5.1)
--- NOTE | 2018-11-22 07:30 | NUR ---
PT'S POTASSIUM WAS CRITICALLY LOW ON AM LABS. CRITICAL RESULT CALLED TO DR. IBRAHIM. ORDER RECEIVED TO START PT ON THE ELECTROLYTE PROTOCOL.
[2018-11-22 12:12] LABS: MAGNESIUM 1.8 mg/dL (1.8-2.4)
--- NOTE | 2018-11-22 17:14 | NUR ---
ASSESSMENTS COMPLETED CHARTED FOR SHIFT - PT REMAINS MOSTLY UNRESPONSIVE - OCCASSIONAL BITING OF YANKER /C SUCTION AND BLINKING OF EYES WHEN LUBRICANT APPLIED - REMAINS AT BEDSIDE MAJORITY OF SHIFT AND STATES IS NOT GIVING UP ON AND DOES NOT WANT TO HEAR ANYTHING NEGATIVE - NO CHANGES OF VENTILATOR REQUIRED - CLEAR NASAL DRAINAGE NOTED /C MINIMAL ET SECRETIONS - CONTINUES TO TOLERATE TUBE FEEDING AND FLUSHES
[2018-11-23] VITALS (24 sets, daily range): BP systolic 83–105; BP diastolic 50–65
[2018-11-23 05:07] LABS: BE(vivo) -3.6 mmol/L (-2 to +3); HCO3 20.2 mmol/L (22.0-26.0); PCO2 32.8 mmHg (35.0-45.0); PO2 140.6 mmHg (80.0-100.0); pH 7.407 (7.360-7.450); sO2 98.8 % (92.0-98.0)
[2018-11-23 05:24] LABS: ALBUMIN 1.6 g/dL (3.4-5.0); CALCIUM 7.2 mg/dL (8.5-10.1); CREATININE 3.2 mg/dL (0.7-1.3); PHOSPHORUS 3.2 mg/dL (2.5-4.9); POTASSIUM 3.2 mmol/L (3.5-5.1)
--- NOTE | 2018-11-23 06:30 | NUR ---
ASSUMED CARE OF PT AT 1900. NO SIGNIFICANT CHANGES FROM CURRENT CONDITION OVERNIGHT. PT UNRESPONSIVE, PT FLEXES TO PAINFUL STIMULI. PT ALSO FLEXES AND TENSES UP WHEN SUCTIONED; PT DOES HAVE A WEAK GAG REFLEX. PT CONTINUES TO STRUGGLE WITH TEMPERATURE REGULATION; TEMPERATURE WAS LOW THROUGHOUT THE NIGHT. KARISHMA HUGGER APPLIED EARLY IN NIGHT, BUT TEMP SHOWED LITTLE IMPROVEMENT. THIS AM, PT WAS DIAPHORETIC AND EXTREMEITIES/FOREHEAD WERE COOL TO TOUCH. KARISHMA HUGGER KEPT ON PT. ASSESSMENTS AND VITALS DOCUMENTED. WILL CONTINUE TO MONITOR.
--- NOTE | 2018-11-23 17:04 | NUR ---
SHIFT SUMMARY: ON THE VENT W/O SEDATION. VITALS STABLE. UNRESPONSIVE. TOLERATING TUBEFEEDING WITH MINIMAL RESIDUALS. AT THE BEDSIDE ON AND OFF THROUGHOUT THE DAY. PLAN FOR TRACH AND PEG NEXT WEEK. DR. MEJIA CONSULTED.
[2018-11-24] VITALS (25 sets, daily range): BP systolic 87–120; BP diastolic 51–84
--- NOTE | 2018-11-24 03:27 | NUR ---
ASSUMED CARE OF PT AT 1900. PT INTUBATED AND ON VENT WITH NO SEDATION. PT OPENS EYES, BUT DOES NOT TRACK. PT FLEXES TO PAINFUL STIMULI OR WHEN SUCTIONED, BUT HAS NO PURPOSEFUL MOVEMENT. PT CONTINUES TO HAVE DIFFICULTY REGULATING TEMP. KARISHMA HUGGER ON THROUGHOUT THE SHIFT, PT'S TEMP WAS LOW. PT'S TEMP IS SLOWLY IMPROVING. PLAN IS FOR PT TO GET A TRACH AND PEG THIS WEEK. WILL CONTINUE TO MONITOR.
[2018-11-24 05:23] LABS: ALBUMIN 1.7 g/dL (3.4-5.0); CALCIUM 8.2 mg/dL (8.5-10.1); CREATININE 2.8 mg/dL (0.7-1.3); PHOSPHORUS 3.7 mg/dL (2.5-4.9); POTASSIUM 3.1 mmol/L (3.5-5.1)
--- NOTE | 2018-11-24 14:04 | NUR ---
ASSUMED CARE OF PT AT 0700 THIS SHIFT. PT HAS BEEN UNRESPOSIVE TO COMMANDS OR NAME. PT OPENS EYES SPONTANEOUSLY, HOWEVER DOES NOT TRACK. PT DOES NOT APPEAR TO BE IN PAIN. PT IS UNABLE TO REGULATE BODY TEMPERATURE EFFECTIVELY, HAS BEAR HUGGER ON. CURRENT PLAN IS FOR PT TO GET TRACHEOSTOMY AND PEG TUBE WHEN APPROPRIATE.
[2018-11-25] VITALS (24 sets, daily range): BP systolic 90–111; BP diastolic 52–64
--- NOTE | 2018-11-25 04:40 | NUR ---
No events in this shift. On vent and remains unresponsive. No seizure activity indicates. Unable to maintain his temp due to excessive sweat and difficult to keep skin dry. Continue cassandra hugger. VS and Rhythms are stable. All lines/tubes remain inplaced. Josephine TF well. Continue working toward plans of cares.
[2018-11-25 04:50] LABS: ALBUMIN 1.7 g/dL (3.4-5.0); CALCIUM 8.1 mg/dL (8.5-10.1); CREATININE 2.4 mg/dL (0.7-1.3); PHOSPHORUS 3.6 mg/dL (2.5-4.9); POTASSIUM 3.3 mmol/L (3.5-5.1)
--- NOTE | 2018-11-25 05:55 | NUR ---
Pt's visited this am. Updates her about his conditions.
--- NOTE | 2018-11-25 13:22 | NUR ---
ASSUMED CARE OF PT AT 0700 THIS SHIFT. PT HAS BEEN UNRESPONSIVE THIS SHIFT, WITHOUT CHANGE IN NEURO STATUS, DOES NOT APPEAR TO BE IN PAIN. PT IS STILL UNABLE TO REGULATE BODY TEMPERATURE, BEAR HUGGER ON. PLAN OF CARE IS TO CONTINUE TO MONITOR CLOSELY AND HAVE SURGERY PLACE TRACH AND PEG FOR [facility] C[facility].
--- NOTE | 2018-11-25 15:58 | NUR ---
FOLLOWIING FOR DC PLANNING. CLINICAL INFO REVIEWED. BRIEF SUPPORTIVE VISIT WITH SPOUSE DAILY AND CONFIRMED PT DOES HAVE [employer] INSURANCE, LIMITED BENEFIT POLICY. SPOUSE COMMUNICATES SHE HAS BEEN TOLD PT HAS SEVERE ANOXIC INJURY WITH POOR PROGNOSIS FOR NEUROLOGICAL RECOVERY AND AT PRESENT WANTS TRACH/PEG. WILL NEED LTAC STAY AND LOOKING INTO BENEFITS FOR THIS. [facility] FOLLOWING TO DO SECONDARY MEDICAID APPLICATION. GENERAL SURGERY CONSULTED FOR TRACH/PEG.
[2018-11-26] VITALS (24 sets, daily range): BP systolic 87–116; BP diastolic 48–67
[2018-11-26 06:27] LABS: ALBUMIN 1.7 g/dL (3.4-5.0); CALCIUM 8.3 mg/dL (8.5-10.1); CREATININE 2.5 mg/dL (0.7-1.3); PHOSPHORUS 3.4 mg/dL (2.5-4.9); POTASSIUM 3.8 mmol/L (3.5-5.1)
--- NOTE | 2018-11-26 06:35 | NUR ---
UNRESPONSIVE, DOESN'T FOLLOW COMMANDS. NO APPARENT PAIN. ON VENT, TOLERATING VENT SETTINGS. TF ONGOING, LOW RESIDUALS. URINE OUTPUT NOTED. FECAL MANAGEMENT SYSTEM IN PLACE, COPIOUS OUTPUT. VISITED WITH PT. WILL CONTINUE TO MONITOR.
--- NOTE | 2018-11-26 16:51 | NUR ---
PT IS UNRESPONSIVE AT THIS TIMES. OPENS HIS EYES BUT FOLLOWS NO COMMANDS . SUCTIONED THIN WHITE SECRETIONS NOTED AND ORAL SECREATIONS NOTED. LUNGS ARE COARSE TO DIMINISHED. SINUS RHYTHM NOTED. RECTAL TUBE. WITH LOOSE STOOL NOTED. OROZCO TO DD WITH CLEAR YELLOW URINE PRESENT. NEPRO AT 30CC HR TOLERATING WELL NO RESIDUAL NOTED. AT BEDSIDE FOR SUPPORT TODAY. REMAINS ON THE VENT. WILL CONTINUE TO ASSESS AND MONITOR PER NURSING
[2018-11-27] VITALS (24 sets, daily range): BP systolic 92–131; BP diastolic 53–78
--- NOTE | 2018-11-27 05:36 | NUR ---
DOESN'T FOLLOW COMMANDS. UNRESPONSIVE. NO APPARENT PAIN. TOLERATE VENT SETTINGS. TF ON HOLD DURING NIGHT D/T HIGH RESIDUALS. TF CURRENTLY ONGOING. URINE OUTPUT NOTED. FMS STILL IN PLACE. FREQUENT TURNS. VSS. AFEBRILE. SAFETY MEASURES IN PLACE. AT BEDSIDE DURING THE NIGHT. WILL CONTINUE TO MONITOR.
[2018-11-27 06:19] LABS: ABSOLUTE NEUTROPHILS 11.6 thou/uL (1.4-8.2); HEMATOCRIT 36.6 % (42.0-52.0); HEMOGLOBIN 11.8 gm/dL (14.0-18.0); RBC 3.91 mil/uL (4.50-6.00); RDW 17.9 % (10.5-14.5)
[2018-11-27 06:20] LABS: BASOPHILS 0.2 % (0.0-2.0); LYMPHOCYTES 6.8 % (24.0-44.0); MCH 30.3 pg (26.0-34.0); MCHC 32.3 g/dL (28.0-37.0); MCV 93.6 fL (80.0-100.0); MONOCYTES 6.6 % (1.0-8.0); PLATELET COUNT 168 thou/uL (150-400); POLYS 85.4 % (36.0-66.0); WBC 13.6 thou/uL (4.0-11.0)
[2018-11-27 06:27] LABS: ALBUMIN 1.9 g/dL (3.4-5.0); CALCIUM 8.8 mg/dL (8.5-10.1); CREATININE 2.4 mg/dL (0.7-1.3); PHOSPHORUS 3.5 mg/dL (2.5-4.9); POTASSIUM 3.7 mmol/L (3.5-5.1)
--- NOTE | 2018-11-27 10:37 | NUR ---
OPENS EYES SPONTANEOUSLY, NO TRACKING, EYES FLUTTER TO DEEP PAIN OR STERNAL RUB, NOT FOLLOWING ANY COMMANDS, NO SPONTANEOUS MOVEMENT IN EXTREMITIES, SR, LASIX IV GIVEN, TOLERATING VENT, SLIGHT GAG REFLEX WITH ORAL CARE/SUCTIONING, GRINDS TEETH ON BITE BLOCK, TOLERATING TUBE FEEDING AT GOAL RATE, OROZCO WITH ADEQUATE URINE OUTPUT, LIQUID BROWN STOOLS PER FECAL MANAGEMENT SYSTEM. NO PROGRESS. PRESENT.
--- NOTE | 2018-11-27 12:09 | NUR ---
DR. BURTON SPOKE WITH REGARDING POTENTIAL DNR STATUS. PT DNR, PLANS CANCELLED FOR TRACH/PEG. NOTIFIED DR. MEJIA'S OFFICE AND THEY ARE PAGING HIM.
--- NOTE | 2018-11-27 15:32 | NUR ---
FOLLOWING FOR DC PLANNING. CONFIRMED PT HAS NO LTACH OR SKILLED REHAB BENEFITS WITHIN [facility] MEDICAL PLAN. DISCUSSED CASE WITH DR. BURTON AFTER HE MET WITH PT'S SPOUSE AROUND NOON. SPOUSE MADE PT DNR AND PER DR. BURTON, PLAN FOR TRACH AND PEG CANCELLED. SPOUSE WOULD LIKE TO SEE IF ANY NEUROLOGICAL IMPROVEMENT IN NEXT SEVERAL DAYS.
--- NOTE | 2018-11-27 21:20 | NUR ---
TALKED TO THIS EVENING, VOICED REDRAWING CARE ON . SHE MENTIONED NEEDING TIME TO FOR FAMILY TO VISIT WITH PT BEFORE REDRAWING CARE. WILL INFORM HOSPITALIST AND AM NURSE.
[2018-11-28] VITALS (24 sets, daily range): BP systolic 102–131; BP diastolic 56–79
--- NOTE | 2018-11-28 06:06 | NUR ---
ON VENT, UNRESPONSIVE. NO APPARENT PAIN. AFEBRILE. VSS. ON TF, RESIDUALS NOTED. OG STILL IN PLACE. FECAL MANAGEMENT IN PLACE. OUTPUT NOTED FROM OROZCO. FREQUENT TURNS AND ORAL CARE. NOT PROGRESSING TOWARDS GOALS. WILL CONTINUE TO MONITOR
[2018-11-28 06:13] LABS: ALBUMIN 1.9 g/dL (3.4-5.0); CALCIUM 8.6 mg/dL (8.5-10.1); CREATININE 2.3 mg/dL (0.7-1.3); PHOSPHORUS 3.5 mg/dL (2.5-4.9); POTASSIUM 3.4 mmol/L (3.5-5.1)
--- NOTE | 2018-11-28 18:45 | NUR ---
SHIFT SUMMARY: UNRESPONSIVE, NEUROLOGICAL STATUS UNCHANGED, NO RESPONSE TO DEEP PAIN, SR, AFEBRILE, LARGE TO MODERATE CLEAR SECRETIONS PER ETT, NO BREATHING ABOVE VENT SET RATE, TUBE FEEDING RESTARTED WHEN RESIDUAL DECREASED, LASIX GIVEN WITH LARGE AMOUNT URINE OUTPUT. PRESENT INTERMITTENTLY DURING SHIFT. PT NOT PROGRESSING.
[2018-11-29] VITALS (24 sets, daily range): BP systolic 102–124; BP diastolic 61–84
--- NOTE | 2018-11-29 06:32 | NUR ---
No changes observed this shift. VS stable and SpO2 adequate on current vent settings. PRN ativan given earlier this am for random eye movements/twitching observed with desired effect achieved. Urine output adequate for shift and TF on hold for high residuals. Continue with POC.
--- NOTE | 2018-11-29 18:30 | NUR ---
SHIFT SUMMARY: NEURO/MOTOR STATUS UNCHANGED, SR, NO SPONTANEOUSLY BREATHING ABOVE VENT SET LEVEL, APNEA TEST PERFORMED WITH RR-[address] BURTON'S REQUEST, LARGE AMOUNT SECRETIONS ORALLY AND PER ETT, NOT TOLERATING TUBE FEEDING, TUBE FEEDING OFF THEN RESTARTED FOR GLUCOSE-78, NEXT GLUCOSE-131. ADEQUATE URINE OUTPUT, CONTINUED STOOL PER FECAL MANAGEMENT SYSTEM. PRESENT OFTEN TO SPEND TIME WITH HER . UPDATED HER AND PROVIDED SUPPORT.
[2018-11-30] VITALS (23 sets, daily range): BP systolic 67–120; BP diastolic 36–75
--- NOTE | 2018-11-30 05:12 | NUR ---
pt assessment remain unchanged thru the noc, spouse here visiting comfort ans support offered, vss, vent settings unchanged, suctioning as needed, con't to monitor per ppoc.
--- NOTE | 2018-11-30 11:56 | NUR ---
CALL PLACED TO [facility] [employer] [employer] [facility]. THEY REQUESTED NOTIFICATION AT TIME OF CARDIAC .
--- NOTE | 2018-11-30 15:00 | NUR ---
DR. BURTON PRESENT TO SPEAK WITH ALONSO-. MORPHINE GTT STARTED AT 4 MG/HR. AT 1410, EXTUBATED AND NG REMOVED PER RT ABRIL. SUCTIONED COPIOUS SECRETIONS AND RESP LABORED. MORPHINE GTT INCREASED, 8 MG/HR. PLACED ORAL PHARYNGEAL AIRWAY(OPA) WITH CONTINUED LABORED RESP. PT HAS STRIDOR. CALL PLACED TO DR. BURTON WITH ORDER FOR NASAL PHARYNGEAL AIRWAY (NPA) AND RACEMIC EPI. ABRIL RT REMOVED OPA, PLACED NPA AND ADMINISTERED RACEMIC EPI. PT RESP SLOWLY IMPROVING, MORPHINE INCREASED TO 12 MG/HR. INCREASING MORPHINE GTT IN 4 MG INCREMENTS EVERY 15 MIN TO DECREASE LABORED RESP. ALONSO-, FAMILY MEMBERS AND CLOSE FRIENDS RETURNED TO PT ROOM WHEN RESP IMPROVED. UPDATING ALONSO ON ALL CARES AND PT STATUS.
--- NOTE | 2018-11-30 18:45 | NUR ---
NEUR0 STATUS UNCHANGED, VERY RARELY OPENS EYES, PROVIDING COMFORT FOR PT, MORPHINE INFUSING TO DECREASE STRUGGLE WITH LABORED BREATHING, USE OF ACCESSORY MUSCLES AND AUDIBLE BREATHING. BREATHING REMAINS LABORED WITH MORPHINE GTT, ATIVAN 2 MG IV GIVEN X 2 DECREASING LABORED RESP AND RESP RATE. PRESENT, UPDATED ON ALL CARES GIVEN AND PLAN OF CARE. NOT PROGRESSING.
[2018-12-01] VITALS (9 sets, daily range): BP systolic 65–77; BP diastolic 37–43
--- NOTE | 2018-12-01 01:54 | NUR ---
MORPHINE DRIP MAINTAINED AT BASAL RATE 4MG/HR ORDERED SINCE BEGINNING OF THIS SHIFT, PRN MORPHINE BEING GIVEN FOR AIR HUNGER, PT'S HEART AND RESP RATE NOTED TO BE GRADUALLY SLOWING DOWN, AGONAL BREATHS NOTED, COMFORT MEASURES BEING PROVIDED. SPOKE TO PT'S AND GAVE UPDATE EARLIER AROUND 1999, SHE SAID TO NOTIFY HER WHEN "HE PASSES", NO FURTHER CONCERNS EXPRESSED. WILL CONTINUE COMFORT MEASURES.
--- NOTE | 2018-12-01 13:05 | NUR ---
TIME OF 1035 - PROTOCOL FOLLOWED INCLUDINE UPDATING DOCTOR AND FAMILY MEMBER - /OBSTETRICS AND GYNECOLOGY PROFESSOR CAME TO BEDSIDE AND COLLECTED PT BELONGING - PT DISCHARGED FROM UNIT /C SECURITY AFTER INSTRUCTED BY MTN TO DO SO - POST MORTEM CARE COMPLETE
== END 2018-12-01 10:35 | DRG 870 ==
LOC: ER 10:40 → EROBS 12:52 → ICU 12:52
PROVIDERS: Emergency Medicine; Hospitalist; Internal Medicine Pulmonary Disease; Pediatrics; ADMIT Internal Medicine
PROC: 0BH17EZ Insertion of Endotracheal Airway into Trachea, Via Natural or Artificial Opening (ICD-10-PCS; principal; 2018-11-15)
PROC: 5A1955Z Respiratory Ventilation, Greater than 96 Consecutive Hours (ICD-10-PCS; principal; 2018-11-15)
PROC: 02HV33Z Insertion of Infusion Device into Superior Vena Cava, Percutaneous Approach (ICD-10-PCS; 2018-11-17)
PROC: B548ZZA Ultrasonography of Superior Vena Cava, Guidance (ICD-10-PCS; 2018-11-17)
DX: A41.9 Sepsis, unspecified organism (principal); I26.99 Other pulmonary embolism without acute cor pulmonale; R65.21 Severe sepsis with septic shock; E43 Unspecified severe protein-calorie malnutrition; D65 Disseminated intravascular coagulation [defibrination syndrome]; J69.0 Pneumonitis due to inhalation of food and vomit; J96.01 Acute respiratory failure with hypoxia; J96.02 Acute respiratory failure with hypercapnia; N17.0 Acute kidney failure with tubular necrosis; D68.9 Coagulation defect, unspecified; K50.90 Crohn's disease, unspecified, without complications; G93.1 Anoxic brain damage, not elsewhere classified; D61.818 Other pancytopenia; I42.9 Cardiomyopathy, unspecified; E87.0 Hyperosmolality and hypernatremia; E87.6 Hypokalemia; D72.829 Elevated white blood cell count, unspecified; I46.9 Cardiac arrest, cause unspecified; I95.9 Hypotension, unspecified; T68.XXXA Hypothermia, initial encounter; E83.42 Hypomagnesemia; D72.823 Leukemoid reaction; Z51.5 Encounter for palliative care; N14.2 Nephropathy induced by unspecified drug, medicament or biological substance; T50.905A Adverse effect of unspecified drugs, medicaments and biological substances, initial encounter; Y92.89 Other specified places as the place of occurrence of the external cause; Z68.27 Body mass index [BMI] 27.0-27.9, adult
CPT/HCPCS: 10078